=== PATIENT | female | born 1955 | race Caucasian/White ===

== ENCOUNTER 2020-09-11 18:22 | Inpatient (IN) ==
[2020-09-11 19:39] LABS: ABS Eosinophils 0.1 10^3/ul (0-0.6); ABS Lymphocytes 1.3 10^3/ul (1.0-4.8); ABS Monocytes 0.9 10^3/ul (0-0.8); ABS Neutrophils 8.5 10^3/ul (1.5-7.7); Eosinophil % 0.5 %; Hematocrit 46 % (35-47); Hemoglobin 15.4 g/dL (12.0-16.0); Lymphocyte % 12.3 %; Mean Corpuscular HGB Conc 34 g/dL (31-36); Mean Corpuscular Hemoglobin 31 pg (27-31); Mean Corpuscular Volume 90 fL (80-97); Mean Platelet Volume 8.4 fL (7.4-10.4); Platelet Count 277 10^3/uL (150-450); Red Blood Count 5.05 10^6 /uL (3.70-4.87); Red Cell Distribution Width 14 % (10-15); White Blood Count 10.8 10^3/uL (3.5-10.8)
[2020-09-11 19:41] LABS: Urine Appearance Cloudy; Urine Bilirubin Negative (Negative); Urine Blood Negative (Negative); Urine Color Yellow; Urine Glucose Negative (Negative); Urine Ketones 1+ (Negative); Urine Nitrite Negative (Negative); Urine Protein Negative (Negative); Urine Specific Gravity 1.018 (1.002-1.030); Urine Urobilinogen Negative (Negative)
[2020-09-11 19:50] LABS: ALT 22 U/L (7-52); AST 20 U/L (13-39); Albumin 4.3 g/dL (3.2-5.2); Albumin/Globulin Ratio 1.7 (1-3); Alkaline Phosphatase 96 U/L (35-149); Anion Gap 11 mmol/L (2-11); Blood Urea Nitrogen 20 mg/dL (6-24); CO2 Carbon Dioxide 23 mmol/L (22-32); Calcium 9.7 mg/dL (8.6-10.3); Chloride 102 mmol/L (101-111); EGFR African American 73.9 (>60); EGFR Non-African American 61.1 (>60); Globulin 2.6 g/dL (2-4); Glucose 83 mg/dL (70-100); Potassium 3.2 mmol/L (3.5-5.0); Sodium 136 mmol/L (135-145); Total Protein 6.9 g/dL (6.4-8.9)
[2020-09-11 19:50] LABS: Urine Amorphous Crystals Present (Absent); Urine Bacteria 1+ (Absent); Urine Red Blood Cell Trace(0-2/hpf) (Absent); Urine Squamous Epithelial Cell Present (Absent); Urine White Blood Cell Trace(0-5/hpf) (Absent)
[2020-09-11 20:02] LABS: Urine Benzodiazepine Screen None Detected (None Detect); Urine Cannabinoids Screen None Detected (None Detect); Urine Opiates Screen None Detected (None Detect)
[2020-09-11 20:27] LABS: Acetaminophen < 15 mcg/mL; Alcohol, S < 10 mg/dL (<10); Salicylate < 2.50 mg/dL (<30)
[2020-09-11 20:42] LABS: TSH Ultra Thyroid Stim Horm 2.11 mcIU/mL (0.34-5.60)
[2020-09-12] MEDS ORDERED: Al Hydrox/Mg Hydrox/Simet LIQ 30 ML UDC PO PRN (00:44)
[2020-09-12] MEDS ORDERED: Venlafaxine XR 75 mg PO SCH (08:30)
[2020-09-12] MEDS: Vitamin THERAPEUTIC TAB PO SCH (10:02)
[2020-09-13 07:43] LABS: HDL Cholesterol 40.2 mg/dL
[2020-09-13] MEDS: Vitamin THERAPEUTIC TAB PO SCH (09:28)
[2020-09-13] MEDS: Nitrofurantoin (monohydrate/macrocrystals) 100 mg CAP PO SCH (21:34)
[2020-09-14] MEDS: Vitamin THERAPEUTIC TAB PO SCH (08:51)
[2020-09-14] MEDS: Nitrofurantoin (monohydrate/macrocrystals) 100 mg CAP PO SCH ×2 (08:51→21:11)
[2020-09-15] MEDS: Nitrofurantoin (monohydrate/macrocrystals) 100 mg CAP PO SCH ×2 (08:25→21:44)
[2020-09-15] MEDS: Vitamin THERAPEUTIC TAB PO SCH (08:25)
[2020-09-16] MEDS: Vitamin THERAPEUTIC TAB PO SCH (08:36)
[2020-09-16] MEDS: Nitrofurantoin (monohydrate/macrocrystals) 100 mg CAP PO SCH ×2 (08:36→21:39)
[2020-09-17] MEDS: Nitrofurantoin (monohydrate/macrocrystals) 100 mg CAP PO SCH ×2 (08:47→21:21)
[2020-09-17] MEDS: Vitamin THERAPEUTIC TAB PO SCH (08:47)
[2020-09-18] MEDS: Nitrofurantoin (monohydrate/macrocrystals) 100 mg CAP PO SCH ×2 (08:14→21:20)
[2020-09-18] MEDS: Vitamin THERAPEUTIC TAB PO SCH (08:14)
[2020-09-19] MEDS: Vitamin THERAPEUTIC TAB PO SCH (08:32)
[2020-09-19] MEDS: Nitrofurantoin (monohydrate/macrocrystals) 100 mg CAP PO SCH ×2 (08:32→21:13)
[2020-09-20] MEDS: Vitamin THERAPEUTIC TAB PO SCH (09:08)
[2020-09-21] MEDS: Vitamin THERAPEUTIC TAB PO SCH (08:50)
[2020-09-22] MEDS: Vitamin THERAPEUTIC TAB PO SCH (08:39)
[2020-09-23] MEDS: Vitamin THERAPEUTIC TAB PO SCH (07:59)
[2020-09-23 12:45] VITALS: BP 115/72
== END 2020-09-23 15:20 | disposition home or self-care (01) | DRG 751 ==
LOC: ED 18:22 → BSU 21:50
PROVIDERS: ADMIT Psychiatry & Neurology Psychiatry; ATTEND Psychiatry & Neurology Psychiatry

== ENCOUNTER 2021-04-29 09:51 | Inpatient (IN) ==
[2021-04-29 11:13] LABS: ABS Eosinophils 0.1 10^3/ul (0-0.6); ABS Lymphocytes 1.5 10^3/ul (1.0-4.8); ABS Monocytes 0.4 10^3/ul (0-0.8); ABS Neutrophils 5.3 10^3/ul (1.5-7.7); Eosinophil % 1.2 %; Hematocrit 45 % (35-47); Hemoglobin 15.1 g/dL (12.0-16.0); Lymphocyte % 20.1 %; Mean Corpuscular HGB Conc 34 g/dL (31-36); Mean Corpuscular Hemoglobin 30 pg (27-31); Mean Corpuscular Volume 89 fL (80-97); Mean Platelet Volume 9.1 fL (7.4-10.4); Platelet Count 222 10^3/uL (150-450); Red Blood Count 5.04 10^6 /uL (3.70-4.87); Red Cell Distribution Width 14 % (10-15); White Blood Count 7.3 10^3/uL (3.5-10.8)
[2021-04-29 11:50] LABS: ALT 7 U/L (7-52); AST 13 U/L (13-39); Albumin 4.2 g/dL (3.2-5.2); Albumin/Globulin Ratio 1.6 (1-3); Alkaline Phosphatase 79 U/L (35-149); Anion Gap 6 mmol/L (2-11); Blood Urea Nitrogen 19 mg/dL (6-24); CO2 Carbon Dioxide 29 mmol/L (22-32); Calcium 9.6 mg/dL (8.6-10.3); Chloride 102 mmol/L (101-111); Globulin 2.7 g/dL (2-4); Glucose 117 mg/dL (70-100); Sodium 137 mmol/L (135-145); Total Protein 6.9 g/dL (6.4-8.9); eGFR CKD-EPI 90.9 (>60)
[2021-04-29 12:36] LABS: Acetaminophen < 15 mcg/mL; Alcohol, S < 13 mg/dL (<13); Salicylate < 2.50 mg/dL (<30)
[2021-04-29 12:50] LABS: TSH Ultra Thyroid Stim Horm 2.82 mcIU/mL (0.34-5.60)
[2021-04-29] MEDS ORDERED: Al Hydrox/Mg Hydrox/Simet LIQ 30 ML UDC PO PRN (13:20)
[2021-04-29 16:11] LABS: Urine Appearance Cloudy; Urine Bilirubin Negative (Negative); Urine Blood 2+ (Negative); Urine Color Straw; Urine Glucose Negative (Negative); Urine Ketones Negative (Negative); Urine Nitrite Negative (Negative); Urine Protein Negative (Negative); Urine Specific Gravity 1.004 (1.002-1.030); Urine Urobilinogen Negative (Negative)
[2021-04-29 16:16] LABS: Urine Amorphous Crystals Present (Absent); Urine Bacteria 1+ (Absent); Urine Red Blood Cell Trace(0-2/hpf) (Absent); Urine Squamous Epithelial Cell Present (Absent); Urine White Blood Cell 3+(>20/hpf) (Absent)
[2021-04-29 16:26] LABS: Urine Benzodiazepine Screen None Detected (None Detect); Urine Cannabinoids Screen None Detected (None Detect); Urine Opiates Screen None Detected (None Detect)
[2021-04-30 07:28] LABS: HDL Cholesterol 36.4 mg/dL
[2021-04-30] MEDS: Multivitamins/Minerals TAB PO SCH (09:55)
[2021-04-30] MEDS: Sulfamethox/Trimethoprim DS TAB 800/160 mg PO SCH ×2 (11:50→20:15)
[2021-05-01] MEDS: Sulfamethox/Trimethoprim DS TAB 800/160 mg PO SCH ×2 (07:50→20:36)
[2021-05-01] MEDS: Multivitamins/Minerals TAB PO SCH (07:51)
[2021-05-02] MEDS: Sulfamethox/Trimethoprim DS TAB 800/160 mg PO SCH ×2 (09:05→20:25)
[2021-05-02] MEDS: Multivitamins/Minerals TAB PO SCH (09:05)
[2021-05-03] MEDS: Multivitamins/Minerals TAB PO SCH (07:29)
[2021-05-03] MEDS: Sulfamethox/Trimethoprim DS TAB 800/160 mg PO SCH ×2 (07:29→20:26)
[2021-05-04] MEDS: Multivitamins/Minerals TAB PO SCH (08:44)
[2021-05-04] MEDS: Sulfamethox/Trimethoprim DS TAB 800/160 mg PO SCH ×2 (08:44→21:18)
[2021-05-05] MEDS: Multivitamins/Minerals TAB PO SCH (09:00)
[2021-05-05] MEDS: Sulfamethox/Trimethoprim DS TAB 800/160 mg PO SCH ×2 (09:00→21:28)
[2021-05-06] MEDS: Multivitamins/Minerals TAB PO SCH (08:20)
[2021-05-06] MEDS: Sulfamethox/Trimethoprim DS TAB 800/160 mg PO SCH ×2 (08:20→21:37)
[2021-05-07] MEDS: Multivitamins/Minerals TAB PO SCH (09:00)
[2021-05-07] MEDS: Sulfamethox/Trimethoprim DS TAB 800/160 mg PO SCH (09:00)
[2021-05-07 11:06] VITALS: BP 99/72
== END 2021-05-07 15:30 | disposition home or self-care (01) | DRG 885 ==
LOC: ED 09:51 → EDHOLD 14:05 → BSU 17:50
PROVIDERS: ADMIT Psychiatry & Neurology Psychiatry; ATTEND Psychiatry & Neurology Psychiatry

== ENCOUNTER 2022-06-13 12:25 | Inpatient (IN) ==
[2022-06-13] MEDS ORDERED: Lactated Ringers 1000 ml BAG 1,000 ML IV ONE (12:34)
[2022-06-13 13:03] LABS: ABS Eosinophils 0.1 10^3/ul (0-0.6); ABS Lymphocytes 1.2 10^3/ul (1.0-4.8); ABS Monocytes 0.4 10^3/ul (0-0.8); ABS Neutrophils 3.4 10^3/ul (1.5-7.7); Eosinophil % 1.4 %; Hematocrit 33 % (35-47); Hemoglobin 11.1 g/dL (12.0-16.0); Lymphocyte % 23.8 %; Mean Corpuscular Hemoglobin 31 pg (27-31); Mean Corpuscular Hgb Conc 34 g/dL (31-36); Mean Corpuscular Volume 92 fL (80-97); Mean Platelet Volume 7.9 fL (7.4-10.4); Platelet Count 165 10^3/uL (150-450); Red Blood Count 3.55 10^6 /uL (3.70-4.87); Red Cell Distribution Width 14 % (10-15); Venous Bicarbonate HCO3 27.6 mmol/L (24-28); White Blood Count 5.1 10^3/uL (3.5-10.8)
[2022-06-13 13:45] LABS: ALT 10 U/L (7-52); AST 14 U/L (13-39); Acetaminophen < 15 mcg/mL; Albumin 3.1 g/dL (3.2-5.2); Albumin/Globulin Ratio 1.8 (1-3); Alcohol, S < 13 mg/dL (<13); Alkaline Phosphatase 42 U/L (35-149); Anion Gap 5 mmol/L (2-11); Blood Urea Nitrogen 18 mg/dL (6-24); CO2 Carbon Dioxide 28 mmol/L (22-32); Calcium 8.1 mg/dL (8.6-10.3); Chloride 107 mmol/L (101-111); Creatine Kinase 87 U/L (10-223); Creatinine, Serum 0.65 mg/dL (0.51-0.95); Globulin 1.7 g/dL (2-4); Glucose 91 mg/dL (70-100); Potassium 3.5 mmol/L (3.5-5.0); Salicylate < 2.50 mg/dL (<30); Sodium 140 mmol/L (135-145); Total Protein 4.8 g/dL (6.4-8.9); eGFR CKD-EPI 98.3 (>60)
[2022-06-13 13:59] LABS: TSH Ultra Thyroid Stim Horm 2.26 mcIU/mL (0.34-5.60)
[2022-06-13 21:33] LABS: Urine Appearance Clear; Urine Bilirubin Negative (Negative); Urine Blood Negative (Negative); Urine Color Straw; Urine Glucose Negative (Negative); Urine Ketones Trace (Negative); Urine Nitrite Negative (Negative); Urine Protein Negative (Negative); Urine Specific Gravity 1.005 (1.002-1.030); Urine Urobilinogen Negative (Negative)
[2022-06-13 21:42] LABS: Urine Benzodiazepine Screen None Detected (None Detect); Urine Cannabinoids Screen None Detected (None Detect); Urine Opiates Screen None Detected (None Detect)
[2022-06-14] MEDS ORDERED: Al Hydrox/Mg Hydrox/Simet LIQ 30 ML UDC PO PRN (10:29)
[2022-06-15] MEDS: Vitamin THERAPEUTIC TAB PO SCH (08:24)
[2022-06-16] MEDS: Vitamin THERAPEUTIC TAB PO SCH (08:22)
[2022-06-16 08:37] LABS: HDL Cholesterol 55.8 mg/dL
[2022-06-17] MEDS: Vitamin THERAPEUTIC TAB PO SCH (07:51)
[2022-06-18] MEDS: Vitamin THERAPEUTIC TAB PO SCH (08:19)
[2022-06-19] MEDS: Vitamin THERAPEUTIC TAB PO SCH (09:03)
[2022-06-20] MEDS: Vitamin THERAPEUTIC TAB PO SCH (08:30)
[2022-06-21] MEDS: Vitamin THERAPEUTIC TAB PO SCH (09:37)
[2022-06-22] MEDS: Vitamin THERAPEUTIC TAB PO SCH (08:28)
[2022-06-23] MEDS: Vitamin THERAPEUTIC TAB PO SCH (08:46)
[2022-06-24] MEDS: Vitamin THERAPEUTIC TAB PO SCH (08:38)
[2022-06-25] MEDS: Vitamin THERAPEUTIC TAB PO SCH (08:26)
[2022-06-26] MEDS: Vitamin THERAPEUTIC TAB PO SCH (08:32)
[2022-06-27] MEDS: Vitamin THERAPEUTIC TAB PO SCH (08:47)
[2022-06-28] MEDS: Vitamin THERAPEUTIC TAB PO SCH (09:34)
[2022-06-29] MEDS: Vitamin THERAPEUTIC TAB PO SCH (09:04)
[2022-06-30] MEDS: Vitamin THERAPEUTIC TAB PO SCH (08:13)
[2022-07-01] MEDS: Vitamin THERAPEUTIC TAB PO SCH (09:00)
[2022-07-02] MEDS: Vitamin THERAPEUTIC TAB PO SCH (09:00)
[2022-07-03] MEDS: Vitamin THERAPEUTIC TAB PO SCH (08:40)
[2022-07-04] MEDS: Vitamin THERAPEUTIC TAB PO SCH (08:17)
[2022-07-05] MEDS: Vitamin THERAPEUTIC TAB PO SCH (08:56)
[2022-07-06] MEDS: Vitamin THERAPEUTIC TAB PO SCH (08:49)
[2022-07-07] MEDS: Vitamin THERAPEUTIC TAB PO SCH (08:19)
[2022-07-07 17:49] VITALS: BP 103/60
[2022-07-08] MEDS: Vitamin THERAPEUTIC TAB PO SCH (07:48)
== END 2022-07-08 11:45 | disposition home or self-care (01) | DRG 914 ==
LOC: ED 12:25 → BSU 06-14 10:33
PROVIDERS: ADMIT Psychiatry & Neurology Psychiatry; ATTEND Psychiatry & Neurology Psychiatry